=== PATIENT | female | born 1960 | race Caucasian/White ===

== ENCOUNTER 2022-06-27 17:40 | Emergency (ER) | payer BC, SELFPAY ==
--- NOTE | 2022-06-27 17:45 | DI.RAD_ITS ---
Exam(s) XR ANKLE RT COMPLETE EXAM: XR ANKLE RT COMPLETE CLINICAL HISTORY: pain s/p fall. TECHNIQUE: 2D digital imaging was performed. COMPARISON: No exams were available for comparison FINDINGS: 3 views No fracture or widening of the ankle mortise. Talar dome unremarkable. No degenerative changes. No tarsal coalition. Soft tissues unremarkable. IMPRESSION: No significant osseous findings. DATA REPOSITORY: RADIATION DOSE DELIVERED:
[2022-06-27 17:47] VITALS: BP 135/66; PULSE 84; RESP 16; TEMP 37; O2SAT 98
--- NOTE | 2022-06-27 18:01 | ED.GENADUL_ITS ---
Discharge Plan Disposition Patient Disposition: Home Condition: Stable Discharge Details Clinical Impression: Sprain of ankle, right Primary Care Provider: Unknown,Unknown ED Provider: Azeem Garcia Home Meds and New Rx's Prescriptions: Continued multivitamin Tablet 1 tab PO DAILY vitamin B complex Tablet 1 tab PO DAILY magnesium 250 mg Tablet 250 mg PO DAILY cholecalciferol (vitamin D3) 10 mcg (400 unit) Tablet 10 mcg PO DAILY calcium 300 mg Tablet,Chewable 300 mg PO DAILY Probiotic 5 billion cell Capsule, Sprinkle 1 cap PO DAILY Discharge Instructions Instructions: Ankle Sprain (ED) Additional Instructions: your xray did not show concerning findings at this time if pain not better in a week follow up with your primary care provider Medical Decision Making 62 yo female with no significant pmhx comes in with cc of right ankle pain. She was holding a door open and missed a step and rolled her right ankle, did not fall or hit her head. She states it happened around 4pm. She has pain with weight bearing over the lateral malleolus. She has no head pain, chest pain, abdomen pain, neck pain, back pain. She only has pain in the lateral right malleolus of her ankle. She can minimally move her ankle due to pain. She has intact distal sensation and pulses, no tenderness or deformity of the metatarsals, does have mild swelling over the lateral malleolus. No tenderness in tibia, knee, femur or hip. Suspect sprain vs kin fracture, will obtain xrays. no acute findings on xray, patient stable. Will treat as sprain, short walking boot provided, advised if not better in a week to see pcp, return precautions given Differential Diagnosis Differential Diagnosis: sprain, fracture Imaging Data Radiologic Study: Attestation: I personally reviewed and interpreted this imaging study as follows: Imaging: X-Ray Radiologist's impression: no acute findings Sign Out No HPI General Mode of arrival: ambulatory . Date/Time Provider Initiated Documentation: 06/27/22 17:46 . Limitations to Documentation: no limitations . Information obtained by: patient . History of Present Illness 62 year old F presents to the emergency department with the chief complaint of right ankle pain, described as moderate, Quality is described as aching, and is localized to the right and lower extremity. Patient reports no radiation. Patient started experiencing this hour(s) (2) and it has been constant. No relieving factors improve symptom(s), No exacerbating factors reported . Patient notes no other symptoms.. Patient did receive the following treatments prior to arrival, none Related Data Home Medications Medication Instructions Recorded Confirmed Lactobacil.acidophilus-Bifido.animalis 1 cap PO DAILY 06/27/22 06/27/22 5 billion cell sprinkle capsule (Probiotic) calcium 300 mg chewable tablet 300 mg PO DAILY 06/27/22 06/27/22 cholecalciferol (vitamin D3) 10 10 mcg PO DAILY 06/27/22 06/27/22 mcg (400 unit) tablet magnesium 250 mg tablet 250 mg PO DAILY 06/27/22 06/27/22 multivitamin 1 tab PO DAILY 06/27/22 06/27/22 vitamin B complex 1 tab PO DAILY 06/27/22 06/27/22 Allergies Allergy/AdvReac Type Severity Reaction Status Date / Time Penicillins AdvReac Intermediate Hives Unverified 06/27/22 17:53 General Stated Complaint: Orthopedic SONNY: 3 Review of Systems All systems reviewed & are unremarkable except as noted in HPI and below Constitutional Constitutional: Denies chills, Denies fever(s) and Denies weakness Eyes Eyes: Denies loss of vision Cardiovascular Cardiovascular: Denies chest pain and Denies dyspnea Respiratory Respiratory: Denies cough and Denies dyspnea Gastrointestinal Gastrointestinal: Denies abdominal pain, Denies nausea and Denies vomiting Integumentary/Breasts Skin/Breast: Denies rash Neurologic Neurologic: Denies loss of vision and Denies weakness PFSH All Active Problems (Updated 06/27/22 @ 18:43 by Azeem Garcia MD) Sprain of ankle, right (Acute) Social History Smoking/Tobacco Use Status: Never Smoking risk assessment performed?: Yes Alcohol Intake: current Alcohol Intake frequency: a few times a week Drug use: Never Substance use type: does not use Do you feel safe at home: Yes Do you feel safe in your relationship?: Yes Exam Const General: no acute distress Orientation: alert HENFL Head: normal to inspection Ears: external ears normal General nose exam: external nose normal Mouth: moist mucous membranes Eyes General: appearance normal, both eyes and all related structures Neck Neck: normal visual inspection Resp Effort & Inspection: normal respiratory effort and able to speak in complete sentences Cardio Rate: regular rate Skin General skin exam: no rashes or lesions noted Neuro General: patient alert and patient oriented x3 Extrem General: capillary refill normal and no calf tenderness Psych Mental Status: mental status grossly normal Course Vital Signs Vital signs: Vital Signs Temperature 37.0 C 06/27/22 17:47 Pulse 84 06/27/22 17:47 Respiratory Rate 16 06/27/22 17:47 Blood Pressure 135/66 06/27/22 17:47 Pulse Oximetry 98 06/27/22 17:47 Temperature 37.0 C 06/27/22 17:47 Temperature Source Tympanic 06/27/22 17:47 Pulse 84 06/27/22 17:47 Respiratory Rate 16 06/27/22 17:47 Respiratory Effort 06/27/22 17:57 Blood Pressure 135/66 06/27/22 17:47 Pulse Oximetry 98 06/27/22 17:47 Oxygen Delivery Method Room Air 06/27/22 17:47 Oxygen Flow Rate 0 06/27/22 17:47 Pain Level 3 06/27/22 17:47 PAWSS Have you Been Recently Intoxicated or Drunk Within the Last 30 days?: No Have you Ever Experienced Previous Episodes of Alcohol Withdrawal?: No Have you ever Experienced Withdrawal Seizures?: No Have you ever Experienced Delirium Tremens(DT)s?: No Have you ever undergone Alcohol Rehabilitation Treatment (i.e, inpt ot outpatient treatment programs)?: No Have you ever Experienced Blackouts?: No Have you ever Combined Alcohol with other Downers within the last 90 days?: No Have you ever Combined Alcohol with any other Substance of Abuse during the last 90 days?: No Result: 0
--- NOTE | 2022-06-27 18:35 | DI.VRAD_ITS ---
PROCEDURE INFORMATION: Exam: XR Right Ankle Exam date and time: 06/27/2022 6:20 PM Age: 62 years old Clinical indication: Injury or trauma; Fall; Other: R/O FX TECHNIQUE: Imaging protocol: Radiologic exam of the Right ankle. Views: 3 or more views. COMPARISON: No relevant prior studies available. FINDINGS: Mildly limited due to positioning Bones/joints: No acute fracture or dislocation Soft tissues: Normal. IMPRESSION: No acute findings. Dictated and Authenticated by: Alban Charlton MD. Ordering:LOLITA Gann MD
== END 2022-06-27 18:56 | disposition home or self-care (01) ==
PROVIDERS: Emergency Provider Emergency Medicine
DX: S93.401A Sprain of unspecified ligament of right ankle, initial encounter (principal); X50.1XXA Overexertion from prolonged static or awkward postures, initial encounter; Y93.89 Activity, other specified; Y99.8 Other external cause status
CPT/HCPCS: 99283; 73610; 99282